=== PATIENT | male | born 1975 | race Caucasian/White ===

== ENCOUNTER 2019-09-29 19:04 | Emergency (ER) | payer MEDICAID ==
[2019-09-29 19:53] LABS: BASOPHILS # (AUTO) 0.1 10^3/uL (0.0-0.1); BASOPHILS % (AUTO) 1.8 %; EOSINOPHILS # (AUTO) 0.1 10^3/uL (0.0-0.7); EOSINOPHILS % (AUTO) 1.8 %; HGB - HEMOGLOBIN 13.4 g/dL (14.0-18.0); LYMPHOCYTES % (AUTO) 27.7 %; MEAN CORPUSCULAR HEMOGLOBIN 35.4 pg (27.0-31.0); MEAN CORPUSCULAR HGB CONC 33.4 g/dL (32.0-36.0); MEAN CORPUSCULAR VOLUME 105.8 fL (80.0-94.0); MEAN PLATELET VOLUME 9.4 fL (7.4-11.4); MONOCYTES # (AUTO) 0.6 10^3/uL (0.0-1.0); NEUTROPHILS # (AUTO) 4.3 10^3/uL (1.5-6.6); NEUTROPHILS % (AUTO) 59.6 %; PLT - PLATELET COUNT 227 10^3/uL (130-450); RED BLOOD COUNT 3.79 10^6/uL (4.70-6.10); WHITE BLOOD COUNT 7.3 x10^3/uL (4.8-10.8)
[2019-09-29 20:19] LABS: ACETAMINOPHEN < 10 ug/mL (10-30); ALBUMIN 4.6 g/dL (3.2-5.5); ALBUMIN/GLOBULIN RATIO 1.2 (1.0-2.2); ALKALINE PHOSPHATASE 118 IU/L (42-121); ALT ALANINE AMINOTRANSFERASE 148 IU/L (10-60); AST ASPARTATE AMINOTRANSFERASE 377 IU/L (10-42); BILIRUBIN,TOTAL 3.8 mg/dL (0.2-1.0); BUN - BLOOD UREA NITROGEN 8 mg/dL (6-20); CALCIUM 9.4 mg/dL (8.5-10.3); CARBON DIOXIDE - CO2 25 mmol/L (21-32); CHLORIDE 94 mmol/L (101-111); CREATININE 0.7 mg/dL (0.6-1.2); GFR - MDRD 124 (>89); GLUCOSE 106 mg/dL (70-100); LIPASE 65 U/L (22-51); SALICYLATE < 6.0 mg/dL; SODIUM 139 mmol/L (135-145); TOTAL PROTEIN 8.3 g/dL (6.7-8.2)
[2019-09-29] MEDS ORDERED: FOLIC ACID INJ 1 MG, THIAMINE INJ 100 MG, MAGNESIUM SULFATE 2 GM, MULTIVITAMIN 10 ML in... IV STA ×5 (20:38)
--- NOTE | 2019-09-29 20:58 | ED Physician Documentation ---
PD HPI MHE - Stated complaint Stated Complaint: MHE/ETOH - Chief complaint Chief Complaint: MHE - History obtained from History obtained from: Patient - History of Present Illness Primary symptom: Suicidal ideation Timing - onset: How many weeks ago ("going on for six weeks" (per patient)) Pain level max: 0 Pain level now: 0 Contributing factors: Substance abuse - ETOH Recently seen: Not recently seen - Additional information Additional information: presents requesting help with quitting drinking as well as for his depression and suicidal thoughts. Patient admits to drinking approximately a fifth of vodka every day for at least the past 2 months straight. He recently broke up with a girlfriend. He also endorses increasingly frequent thoughts of killing himself. Review of Systems Constitutional: reports: Reviewed and negative Cardiac: reports: Reviewed and negative Respiratory: reports: Reviewed and negative GI: reports: Reviewed and negative : reports: Reviewed and negative Musculoskeletal: reports: Reviewed and negative Neurologic: denies: Headache Psychiatric: reports: Depressed, Suicidal, Anxiety. denies: Homicidal, Hallucinations, Delusions PD PAST MEDICAL HISTORY - Past Medical History Past Medical History: Yes Psych: Depression, Anxiety, Other Other Past Medical History: admits to being an alcoholic - Allergies Allergies/Adverse Reactions: Allergies Allergy/AdvReac Type Severity Reaction Status Date / Time No Known Drug Allergies Allergy Verified 09/29/19 19:22 - Social History Does the pt smoke?: Yes Smoking Status: Current every day smoker Does the pt drink ETOH?: Yes ETOH Use: Liquor Does the pt have substance abuse?: No PD ED PE NORMAL - Vitals Vital signs reviewed: Yes - General General: Alert and oriented X 3, No acute distress, Well developed/nourished, Other (calm, conversant, cooperative, NAD) - HEENT HEENT: Atraumatic, PERRL, EOMI, Moist mucous membranes - Neck Neck: Supple, no meningeal sign - Cardiac Cardiac: No murmur - Respiratory Respiratory: No respiratory distress, Clear bilaterally - Abdomen Abdomen: Soft, Non tender - Derm Derm: Normal color, Warm and dry - Extremities Extremities: No edema - Neuro Neuro: Alert and oriented X 3 Eye Opening: Spontaneous Motor: Obeys Commands Verbal: Oriented GCS Score: 15 PD ED PE EXPANDED - Cardiac Cardiac: Tachy, Regular Rhythm Results - Vitals Vitals: Vital Signs - 24 hr 09/30/19 10/01/19 10/01/19 16:11 00:16 06:19 Temperature 37.2 C 36.8 C Heart Rate 90 76 57 L Respiratory 18 16 18 Rate Blood Pressure 125/84 H 103/80 99/68 O2 Saturation 97 96 99 Oxygen O2 Source Room air - Labs Labs: Laboratory Tests 09/29/19 09/29/19 09/30/19 19:49 19:49 07:18 WBC 7.3 RBC 3.79 L Hgb 13.4 L Hct 40.1 L MCV 105.8 H MCH 35.4 H MCHC 33.4 RDW 18.0 H Plt Count 227 MPV 9.4 Neut # (Auto) 4.3 Lymph # (Auto) 2.0 [place] # (Auto) 0.6 Eos # (Auto) 0.1 Baso # (Auto) 0.1 Absolute Nucleated RBC 0.00 Nucleated RBC % 0.0 Sodium 139 Potassium 3.5 Chloride 94 L Carbon Dioxide 25 Anion Gap 20.0 H BUN 8 Creatinine 0.7 Estimated GFR (MDRD) 124 Glucose 106 H Calcium 9.4 Total Bilirubin 3.8 H AST 377 H ALT 148 H Alkaline Phosphatase 118 Total Protein 8.3 H Albumin 4.6 Globulin 3.7 Albumin/Globulin Ratio 1.2 Lipase 65 H Urine Color Urine Clarity Urine pH Ur Specific [place] Urine Protein Urine Glucose (UA) Urine Ketones Urine Occult Blood Urine Nitrite Urine Bilirubin Urine Urobilinogen Ur Leukocyte Esterase Ur Microscopic Review Urine Culture Comments Salicylates < 6.0 Urine Opiates Screen Ur Oxycodone Screen Urine Methadone Screen Ur Propoxyphene Screen Acetaminophen < 10 L Ur Barbiturates Screen Ur Tricyclics Screen Ur Phencyclidine Scrn Ur Amphetamine Screen U Methamphetamines Scrn U Benzodiazepines Scrn Urine Cocaine Screen U Cannabinoids Screen Ethyl Alcohol 449.9 158.7 09/30/19 09/30/19 07:30 13:00 WBC RBC Hgb Hct MCV MCH MCHC RDW Plt Count MPV Neut # (Auto) Lymph # (Auto) [place] # (Auto) Eos # (Auto) Baso # (Auto) Absolute Nucleated RBC Nucleated RBC % Sodium 140 Potassium 4.0 Chloride 102 Carbon Dioxide 25 Anion Gap 13.0 BUN 11 Creatinine 0.7 Estimated GFR (MDRD) 124 Glucose 103 H Calcium 8.9 Total Bilirubin 4.2 H AST 437 H ALT 152 H Alkaline Phosphatase 106 Total Protein 7.6 Albumin 4.1 Globulin 3.5 Albumin/Globulin Ratio 1.2 Lipase 95 H Urine Color DARK YELLOW Urine Clarity CLEAR Urine pH 5.5 Ur Specific [place] 1.020 Urine Protein TRACE Urine Glucose (UA) NEGATIVE Urine Ketones TRACE Urine Occult Blood NEGATIVE Urine Nitrite NEGATIVE Urine Bilirubin MODERATE H Urine Urobilinogen 2 H Ur Leukocyte Esterase NEGATIVE Ur Microscopic Review NOT INDICATED Urine Culture Comments NOT INDICATED Salicylates Urine Opiates Screen NEGATIVE Ur Oxycodone Screen NEGATIVE Urine Methadone Screen NEGATIVE Ur Propoxyphene Screen NEGATIVE Acetaminophen Ur Barbiturates Screen NEGATIVE Ur Tricyclics Screen NEGATIVE Ur Phencyclidine Scrn NEGATIVE Ur Amphetamine Screen NEGATIVE U Methamphetamines Scrn NEGATIVE U Benzodiazepines Scrn POSITIVE H Urine Cocaine Screen NEGATIVE U Cannabinoids Screen NEGATIVE Ethyl Alcohol < 5.0 PD MEDICAL DECISION MAKING - ED course Complexity details: reviewed results, re-evaluated patient, considered differential, d/w patient Departure - Departure Clinical Impression: Alcoholism
[2019-09-29] MEDS ORDERED: THIAMINE 100 MG/1 ML 2 ML MDV ONE (21:00)
[2019-09-29] MEDS ORDERED: LORazepam 2 MG/ML VIAL IVP STA (21:15)
[2019-09-30] MEDS ORDERED: LORazepam 2 MG/ML VIAL IVP STA ×5 (07:24→16:58)
[2019-09-30 07:45] LABS: MUDS CUTOFF CONCENTRATIONS CUTOFF CONC BELOW:
[2019-09-30 07:53] LABS: GLUCOSE, URINE (UA) NEGATIVE (NEGATIVE); KETONES,URINE (UA) TRACE mg/dL (NEGATIVE); LEUKOCYTE ESTERASE, URINE NEGATIVE (NEGATIVE); NITRITE,URINE NEGATIVE (NEGATIVE); OCCULT BLOOD,URINE NEGATIVE (NEGATIVE); PH,URINE 5.5 PH (5.0-7.5); PROTEIN,URINE TRACE mg/dL (NEGATIVE); UROBILINOGEN,URINE 2 E.U./dL (NORMAL)
[2019-09-30 08:05] LABS: AMPHETAMINE SCREEN,URINE NEGATIVE (NEGATIVE); BENZODIAZEPINES SCREEN, URINE POSITIVE (NEGATIVE); COCAINE SCREEN URINE NEGATIVE (NEGATIVE); METHADONE SCREEN, URINE NEGATIVE (NEGATIVE); METHAMPHETAMINES SCREEN, URINE NEGATIVE (NEGATIVE); OPIATE SCREEN, URINE NEGATIVE (NEGATIVE); OXYCODONE SCREEN, URINE NEGATIVE (NEGATIVE); TRICYCLIC ANTIDEPRESSANT,URINE NEGATIVE (NEGATIVE)
[2019-09-30 08:06] LABS: PROPOXYPHENE SCREEN, URINE NEGATIVE (NEGATIVE)
[2019-09-30 08:13] LABS: BILIRUBIN,URINE MODERATE (NEGATIVE); CLARITY,URINE CLEAR (CLEAR); ICTOTEST,URINE POSITIVE
[2019-09-30] MEDS ORDERED: SODIUM CHLORIDE 0.9% 1,000 ML IV STA (08:36)
[2019-09-30 13:25] LABS: ALBUMIN 4.1 g/dL (3.2-5.5); ALBUMIN/GLOBULIN RATIO 1.2 (1.0-2.2); ALKALINE PHOSPHATASE 106 IU/L (42-121); ALT ALANINE AMINOTRANSFERASE 152 IU/L (10-60); AST ASPARTATE AMINOTRANSFERASE 437 IU/L (10-42); BILIRUBIN,TOTAL 4.2 mg/dL (0.2-1.0); BUN - BLOOD UREA NITROGEN 11 mg/dL (6-20); CALCIUM 8.9 mg/dL (8.5-10.3); CARBON DIOXIDE - CO2 25 mmol/L (21-32); CHLORIDE 102 mmol/L (101-111); CREATININE 0.7 mg/dL (0.6-1.2); GFR - MDRD 124 (>89); GLUCOSE 103 mg/dL (70-100); LIPASE 95 U/L (22-51); SODIUM 140 mmol/L (135-145); TOTAL PROTEIN 7.6 g/dL (6.7-8.2)
[2019-09-30] MEDS ORDERED: SODIUM CHLORIDE 0.9% 1,000 ML IV ONE (16:58)
[2019-09-30] MEDS ORDERED: ONDANSETRON 4 MG/2 ML VIAL IVP STA (16:59)
[2019-09-30] MEDS ORDERED: cloNIDine 0.1 MG TABLET PO STA (16:59)
[2019-09-30] MEDS ORDERED: chlordiazePOXIDE 25 MG CAPSULE PO STA (17:06)
--- NOTE | 2019-09-30 17:12 | ED Physician Documentation ---
ED Addendum - Addendum Addendum: 09/30/19 17:11 The patient rested most of the day. He had gotten benzodiazepines of Ativan this morning when he was having some withdrawal symptoms. He was just starting to feel anxious and shaky again around 5:00 or 4:00. He was still resting but when I went to check on him again he was feeling more shaky at this point. We will give him another dose of Ativan. I will set him up for regular dosing of Librium every 6 hours with Ativan every 2 hours as needed. Social work has seen the patient and attempted voluntary admission at rehab or dual diagnosis centers. 2 of them did not have beds or he did not meet insurance. However [facility] is evaluating the patient at this time. We will follow-up with them in another hour or 2 if we have not heard back from them. Otherwise hoping that they will accept the patient as they are reviewing the case and have a bed available. They are dual diagnosis facility. Otherwise the patient may need to remain overnight in the hospital and see if there is bed availability tomorrow. He is not suicidal at this time and alternatively if he elected to go home we could discharge him with medications for withdrawal.
[2019-09-30] MEDS: chlordiazePOXIDE 25 MG CAPSULE PO SCH (20:55)
[2019-10-01] MEDS: chlordiazePOXIDE 25 MG CAPSULE PO SCH ×4 (01:59→23:12)
[2019-10-01] MEDS ORDERED: SODIUM CHLORIDE 0.9% 1,000 ML IV ONE (08:34)
[2019-10-01] MEDS: LORazepam 1 MG TABLET PO PRN ×2 (09:01→14:05)
[2019-10-01 10:40] LABS: ALBUMIN 3.2 g/dL (3.2-5.5); ALBUMIN/GLOBULIN RATIO 1.1 (1.0-2.2); BILIRUBIN,TOTAL 3.4 mg/dL (0.2-1.0); CALCIUM 8.4 mg/dL (8.5-10.3); CREATININE 0.7 mg/dL (0.6-1.2); TOTAL PROTEIN 6.1 g/dL (6.7-8.2)
--- NOTE | 2019-10-01 13:32 | ED Physician Documentation ---
ED Addendum - Addendum Addendum: 10/01/19 13:31 The patient did well on scheduled doses of Librium and did not need as needed doses of Ativan. He slept well. He is not having significant withdrawal symptoms. Repeat of his liver enzymes this morning showed considerable improvement compared to last check yesterday. He is stable with improving labs. I presume social work will be looking at facilities again. I wonder if they could re-check with [facility] given that his labs are improving and they had had space available yesterday.
[2019-10-02] MEDS: LORazepam 1 MG TABLET PO PRN ×3 (02:10→22:51)
[2019-10-02] MEDS: chlordiazePOXIDE 25 MG CAPSULE PO SCH ×4 (02:49→22:50)
[2019-10-03] MEDS: chlordiazePOXIDE 25 MG CAPSULE PO SCH ×2 (01:48→08:24)
[2019-10-03] MEDS: LORazepam 1 MG TABLET PO PRN (11:33)
[2019-10-03 11:46] VITALS: BP 112/85
== END 2019-10-03 11:50 | disposition home or self-care (01) ==
LOC: ED 19:04
DX: F10.20 Alcohol dependence, uncomplicated (principal)
CPT/HCPCS: 36415; 80053; 80306; 80307; 80320; 80329; 81003; 83690; 85025; 96361; 96365; 96366; 96375; 96376; 99283; 99284; A9270; J2060; J3411; J8499; 80076; 81001; 87086